=== PATIENT | male | born 1995 ===

== ENCOUNTER 2017-02-05 16:06 | Emergency (ER) | payer OTHER ==
[2017-02-05 16:29] VITALS: RESP 18; TEMP 98; O2SAT 99
--- NOTE | 2017-02-05 18:06 | RAD ---
PROCEDURE: Right Knee Radiographs. HISTORY: pain COMPARISON: None. FINDINGS: BONES: Normal. No fracture. JOINTS: Normal. No osteoarthritis. JOINT EFFUSION: Suspicious for small joint effusion. OTHER FINDINGS: None. IMPRESSION: No evidence of acute fracture or dislocation. Suspicious for small joint effusion.
--- NOTE | 2017-02-05 18:08 | C.PDOC ---
History Of Present Illness 21 y/o male presents to ED for evaluation of right knee pain. Pt states that he fell while playing basketball today, injuring his right knee. Notes that he is able bear weight on it. Denies change in sensation, skin changes, or any other associated symptoms at this time. Time Seen by Provider: 02/05/17 16:56 Chief Complaint (Nursing): Lower Extremity Problem/Injury History Per: Patient History/Exam Limitations: no limitations Onset/Duration Of Symptoms: Hrs Current Symptoms Are (Timing): Still Present Recent travel outside of the [place]: No Additional History Per: Patient - Knee Description Of Injury: Fell Past Medical History Reviewed: Historical Data, Nursing Documentation, Vital Signs Vital Signs: Last Vital Signs Temp 98.0 F 02/05/17 16:24 Pulse 72 02/05/17 18:27 Resp 18 02/05/17 18:27 BP 110/63 02/05/17 18:27 Pulse Ox 99 02/05/17 19:44 Family History: States: No Known Family Hx - Social History Hx Alcohol Use: No Hx Substance Use: No Review Of Systems Except As Marked, All Systems Reviewed And Found Negative. Constitutional: Negative for: Fever, Chills Musculoskeletal: Positive for: Leg Pain (right knee pain) Skin: Negative for: Rash, Bruising Neurological: Negative for: Weakness, Numbness Physical Exam - Physical Exam Appears: Non-toxic, No Acute Distress Skin: Normal Color, Warm, Dry Head: Atraumatic, Normacephalic Eye(s): bilateral: Normal Inspection, EOMI Nose: Normal Oral Mucosa: Moist Neck: Supple Chest: Symmetrical Respiratory: No Accessory Muscle Use Extremity: Normal ROM, Tenderness (inferior and anterior aspect of right knee), Capillary Refill (<2 sec.), No Deformity, No Swelling Extremity: Bilateral: Normal Color And Temperature, Normal ROM Neurological/Psych: Oriented x3, Normal Speech, Normal Motor, Normal Sensation ED Course And Treatment O2 Sat by Pulse Oximetry: 99 (on RA) Pulse Ox Interpretation: Normal - Other Rad Right knee x-ray X-Ray: Interpreted by Me, Viewed By Me Interpretation: PROCEDURE: Right Knee Radiographs. HISTORY: pain. COMPARISON : None. FINDINGS: BONES: Normal. No fracture. JOINTS: Normal. No osteoarthritis. JOINT EFFUSION: Suspicious for small joint effusion. OTHER FINDINGS: None. IMPRESSION: No evidence of acute fracture or dislocation. Suspicious for small joint effusion. Progress Note: Right knee x-ray ordered and reviewed. Knee mobilizer was applied. Pt is being discharged home with instructions to follow up with liquor department manager in 1-2 days for further evaluation. Crutches ordered, pt refused. Disposition - Disposition Referrals: Stephanie Villa MD [Staff Provider] - Disposition: HOME/ ROUTINE Disposition Time: 18:05 Condition: STABLE Additional Instructions: Rest, ice and elevate the area. Follow up with ortho in 1-2 days. 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 - Scribe Statement The provider has reviewed the documentation as recorded by the Scribe Tika Naranjo All medical record entries made by the Scribe were at my direction and personally dictated by me. I have reviewed the chart and agree that the record accurately reflects my personal performance of the history, physical exam, medical decision making, and the department course for this patient. I have also personally directed, reviewed, and agree with the discharge instructions and disposition.
[2017-02-05 18:28] VITALS: BP 110/63; PULSE 72
== END 2017-02-05 18:29 | disposition home or self-care (01) ==
LOC: C.ER 16:06
DX: S86.911A Strain of unspecified muscle(s) and tendon(s) at lower leg level, right leg, initial encounter (principal); W19.XXXA Unspecified fall, initial encounter; Y93.67 Activity, basketball